=== PATIENT | male | born 2005 | race Caucasian/White ===

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

== ENCOUNTER 2024-11-28 14:55 | Inpatient (IN) | payer MEDICAID, OTHER ==
[~2024-11-28] VITALS: Ht 175.3 cm; Wt 129.7 kg
[~2024-11-28 14:55] MED LIST changes: +ALLE24TA7 PO; -ARIP1TAB43 PO; +ARIP20TA51 PO; -D31000TA2 PO; +ERYT-86 PO; -OMEP-221 PO; +OMEP40CA5 PO; +VITA100093 PO; +[UNRECOGNIZED DRUG - CODE] PO; -[UNRECOGNIZED DRUG - CODE] PO; -[UNRECOGNIZED DRUG - CODE] PO
[2024-11-28] MEDS ORDERED: SERT50TA29 PO (15:04)
[2024-11-28] MEDS ORDERED: SERT25TA21 PO (15:04)
[2024-11-28 15:28] LABS: BASO % 0.4 % (0.0-1.0); EOS # 0.1 10^3/uL (0.0-0.5); EOS % 0.5 % (0.0-3.0); HEMATOCRIT 46.8 % (42.0-52.0); HEMOGLOBIN 15.5 g/dl (13.5-17.5); LYMPH # 1.6 10^3/uL (1.5-5.0); LYMPH % 14.4 % (24.0-44.0); MEAN CORPUSCULAR HEMOGLOBIN 27.8 pg (27.0-33.0); MEAN CORPUSCULAR HGB CONC 33.1 g/dl (32.0-36.5); MONO # 0.7 10^3/uL (0.0-0.8); MONO % 6.1 % (2.0-8.0); NEUTROPHILS # 8.9 10^3/uL (1.5-8.5); NEUTROPHILS % 78.2 % (36.0-66.0); PLATELET COUNT, AUTOMATED 274 10^3/uL (150-450); RED BLOOD COUNT 5.57 10^6/uL (4.30-6.10); WHITE BLOOD COUNT 11.3 10^3/uL (4.0-10.0)
[2024-11-28 15:56] LABS: ETHYL ALCOHOL (ETHANOL) 0.003 % (0.000-0.010)
[2024-11-28 15:58] LABS: SALICYLATE LEVEL < 3.0 MG/DL (<30)
[2024-11-28 15:59] LABS: THYROID STIMULATING HORMONE 3.146 uIU/ML (0.55-4.78)
[2024-11-28 16:05] LABS: ALBUMIN 4.1 G/DL (3.2-5.2); ALKALINE PHOSPHATASE 62 U/L (40-129); ALT/SGPT 43 U/L (7.0-40); AST/SGOT 25 U/L (<34); BILIRUBIN,DIRECT 0.2 MG/DL (<0.4); BILIRUBIN,TOTAL 0.5 MG/DL (0.3-1.2); BLOOD UREA NITROGEN 12 MG/DL (9-23); CALCIUM LEVEL 9.7 MG/DL (8.5-10.1); CARBON DIOXIDE LEVEL 29 MMOL/L (20-31); CHLORIDE LEVEL 103 MMOL/L (98-107); CREATININE FOR GFR 0.85 MG/DL (0.70-1.30); GLOMERULAR FILTRATION RATE > 90.0 (>60); GLUCOSE, FASTING 128 MG/DL (60-100); POTASSIUM SERUM 4.2 MMOL/L (3.5-5.1); SODIUM LEVEL 142 MMOL/L (136-145); TOTAL PROTEIN 7.8 G/DL (5.7-8.2)
[2024-11-28 16:07] LABS: CPK CREATINE PHOSPHOKINASE 78 U/L (46-171)
[2024-11-28] MEDS ORDERED: HOME MED LIST COMPLETE! XX SCH (18:30)
[2024-11-28 19:17] LABS: AMPHETAMINES LEVEL URINE NEGATIVE (NEGATIVE); BARBITURATES URINE NEGATIVE (NEGATIVE); BENZODIAZEPINES URINE NEGATIVE (NEGATIVE); COCAINE METABOLITE URINE NEGATIVE (NEGATIVE); METHADONE URINE NEGATIVE (NEGATIVE); OPIATES URINE NEGATIVE (NEGATIVE); PHENCYCLIDINE URINE NEGATIVE (NEGATIVE)
[2024-11-28 19:21] LABS: CANNABINOIDS URINE POSITIVE (NEGATIVE)
[2024-11-28] MEDS ORDERED: IBUPROFEN 400MG TAB PO PRN (20:35)
[2024-11-28] MEDS ORDERED: MAALOX 30 ML SUSP *UDC PO PRN (20:35)
[2024-11-28] MEDS ORDERED: ACETAMINOPHEN 325 MG TAB PO PRN (20:35)
[2024-11-28] MEDS ORDERED: MOM 30ML SUSPENSION UDC PO PRN (20:35)
[2024-11-28] MEDS ORDERED: diphenhydrAMINE 25MG CAP PO PRN (20:35)
[2024-11-28] MEDS ORDERED: traZODone 50 MG TAB PO PRN (20:35)
[2024-11-28 22:20] VITALS: BP 103/71; TEMP 97; O2SAT 100
[2024-11-29 06:27] VITALS: BP 109/61; TEMP 97.6; O2SAT 98
[2024-11-29] MEDS: SERTRALINE HCL 25 MG TABLET PO SCH (09:53)
[2024-11-29 16:33] VITALS: BP 148/73; TEMP 97.6; O2SAT 100
[2024-11-30 06:45] VITALS: BP 117/77; TEMP 96.7; O2SAT 98
[2024-11-30] MEDS ORDERED: ZOLO100T PO (08:09)
== END 2024-11-30 11:25 | disposition home or self-care (01) | DRG 882 ==
LOC: M ED 14:55 → EDBD 14:55 → M ED INP 20:33 → M PSY 22:18
PROVIDERS: ADMIT Psychiatry & Neurology Neurology; ATTEND Psychiatry & Neurology Neurology
DX: F43.23 Adjustment disorder with mixed anxiety and depressed mood (principal); R45.851 Suicidal ideations; F41.9 Anxiety disorder, unspecified; F34.1 Dysthymic disorder; F84.0 Autistic disorder; Z59.89 Other problems related to housing and economic circumstances; Z65.3 Problems related to other legal circumstances; M10.9 Gout, unspecified; F12.90 Cannabis use, unspecified, uncomplicated; Z79.899 Other long term (current) drug therapy